=== PATIENT | male | born 1935 | race Caucasian/White ===

== ENCOUNTER 2021-01-09 17:04 | Emergency (ER) | payer MEDICARE ==
[2021-01-09 17:25] VITALS: BP 141/51; PULSE 87
--- NOTE | 2021-01-09 17:59 | EDM.PDOC ---
ED HPI GENERAL MEDICAL PROBLEM - General Chief Complaint: Respiratory Problem Stated Complaint: COUGHING Time Seen by Provider: 01/09/21 17:31 Source of Information: Reports: Patient History Limitations: Reports: No Limitations - History of Present Illness INITIAL COMMENTS - FREE TEXT/NARRATIVE: 85 yo male presents to ER today with cough. cough and nasal congestion present. he is COVID vaccinated. Afebrile. He denies feeling SOB. He does have past history of being a smoker many years ago. denies headache, N/V/D. appetite is normal - Related Data Allergies Allergy/AdvReac Type Severity Reaction Status Date / Time No Known Allergies Allergy Verified 01/09/21 17:25 Home Meds: Home Meds Clopidogrel [Plavix] 75 mg PO DAILY 09/10/13 [History] Furosemide 20 mg PO BID 09/10/13 [History] atorvaSTATin [Lipitor] 80 mg PO DAILY 09/10/13 [History] carvediloL [Carvedilol] 6.25 mg PO BID 09/10/13 [History] Past Medical History Cardiovascular History: Reports: Heart Failure, High Cholesterol, Hypertension - Past Surgical History Cardiovascular Surgical History: Reports: Coronary Artery Bypass Social & Family History - Tobacco Use Tobacco Use Status *Q: Never Tobacco User - Caffeine Use Caffeine Use: Reports: Coffee - Recreational Drug Use Recreational Drug Use: No ED ROS GENERAL - Review of Systems Review Of Systems: See Below Constitutional: Reports: Malaise, Fatigue. Denies: Fever HEENT: Reports: Rhinitis, Sinus Problem. Denies: Throat Pain Respiratory: Reports: Cough. Denies: Shortness of Breath, Wheezing Cardiovascular: Denies: Chest Pain GI/Abdominal: Denies: Abdominal Pain ED EXAM, GENERAL - Physical Exam Exam: See Below Exam Limited By: No Limitations General Appearance: Alert, WD/WN, No Apparent Distress Eye Exam: Bilateral Eye: PERRL Ears: Normal External Exam, Normal Canal, Hearing Grossly Normal, Normal TMs Ear Exam: Bilateral Ear: Auricle Normal, Canal Normal, TM normal Nose: Clear Rhinorrhea Throat/Mouth: Normal Inspection, Normal Lips, Normal Teeth Head: Atraumatic, Normocephalic Neck: Normal Inspection, Supple, Non-Tender, Full Range of Motion, Lymphadenopathy (R), Lymphadenopathy (L) Respiratory/Chest: No Respiratory Distress, Normal Breath Sounds, No Accessory Muscle Use, Rhonchi (right lower). No: Crackles, Wheezing Cardiovascular: Normal Peripheral Pulses, Regular Rate, Rhythm, No Murmur GI/Abdominal: Soft, Non-Tender Neurological: Alert, Oriented Psychiatric: Normal Affect, Normal Mood Skin Exam: Warm, Dry, Intact Course - Vital Signs Last Recorded V/S: Last Vital Signs Temp 36.6 C 01/09/21 17:24 Pulse 87 01/09/21 17:24 Resp 20 01/09/21 17:24 BP 141/51 H 01/09/21 17:24 Pulse Ox 91 L 01/09/21 17:24 Departure - Departure Time of Disposition: 17:59 Disposition: Home, Self-Care 01 Condition: Good Clinical Impression: Lower resp. tract infection - Discharge Information *PRESCRIPTION DRUG MONITORING PROGRAM REVIEWED*: Not Applicable *COPY OF PRESCRIPTION DRUG MONITORING REPORT IN PATIENT [place]: Not Applicable Instructions: Community-Acquired Pneumonia, Adult, [id number] Referrals: PCP,None [Primary Care Provider] - Forms: ED Department Discharge Additional Instructions: Azithromycin 500 mg daily for 5 days if you get short of breath come back to the emergency room or follow-up at your regular clinic increase your fluid intake over the next few days with goal of 64 ounces rest Sepsis Event Note (ED) - Focused Exam Vital Signs: Vital Signs Temp Pulse Resp BP Pulse Ox 01/09/21 17:24 36.6 C 87 20 141/51 H 91 L
== END 2021-01-09 18:21 | disposition home or self-care (01) ==
LOC: JP.ED 17:04
DX: J22 Unspecified acute lower respiratory infection (principal); I11.0 Hypertensive heart disease with heart failure; I50.9 Heart failure, unspecified; E78.00 Pure hypercholesterolemia, unspecified; Z95.1 Presence of aortocoronary bypass graft; Z79.02 Long term (current) use of antithrombotics/antiplatelets; Z79.899 Other long term (current) drug therapy
CPT/HCPCS: 99283

== ENCOUNTER 2021-07-20 14:29 | Emergency (ER) | payer MEDICARE ==
[2021-07-20 14:50] VITALS: BP 150/61; PULSE 65
[2021-07-20] MEDS ORDERED: Bacitracin Oint 1 GM U/D Packet TOP ONE (15:17)
== END 2021-07-20 15:47 | disposition home or self-care (01) ==
LOC: JP.ED 14:29
DX: L98.9 Disorder of the skin and subcutaneous tissue, unspecified (principal); I11.0 Hypertensive heart disease with heart failure; I50.9 Heart failure, unspecified; E78.00 Pure hypercholesterolemia, unspecified; Z79.899 Other long term (current) drug therapy; Z79.02 Long term (current) use of antithrombotics/antiplatelets
CPT/HCPCS: 99281; 99282

== ENCOUNTER 2022-07-10 11:41 | Emergency (ER) | payer MEDICARE ==
[2022-07-10] MEDS ORDERED: Diphtheria,Pertussis(Acell),Tetanus Vaccine 0.5 ML Syringe IM ONE (12:09)
[2022-07-10 13:16] VITALS: BP 158/56; PULSE 61
== END 2022-07-10 15:38 | disposition home or self-care (01) ==
LOC: JP.ED 11:41
DX: S61.217A Laceration without foreign body of left little finger without damage to nail, initial encounter (principal); S00.83XA Contusion of other part of head, initial encounter; S20.212A Contusion of left front wall of thorax, initial encounter; E78.00 Pure hypercholesterolemia, unspecified; I10 Essential (primary) hypertension; I25.2 Old myocardial infarction; Z79.02 Long term (current) use of antithrombotics/antiplatelets; Z79.899 Other long term (current) drug therapy; Z86.16 Personal history of COVID-19; Z87.891 Personal history of nicotine dependence; Z23 Encounter for immunization; W18.09XA Striking against other object with subsequent fall, initial encounter
CPT/HCPCS: 70450; 70450-26; 71101-26-LT; 71101-LT; 73140-26-F4; 73140-F4; 90471; 90715; 93005; 93010; 99283; 99284